=== PATIENT | female | born 1945 | race Hispanic/Latino ===

== ENCOUNTER 2018-05-27 18:13 | Emergency (ER) | payer MEDICARE ==
[2018-05-27] MEDS ORDERED: NORCO 5/325 PO ONE (20:49)
--- NOTE | 2018-05-27 21:04 | Emergency Department Report ---
HPI - General Chief Complaint: Fall Time Seen by Provider: 05/27/18 20:35 - HPI HPI: Room 2 The patient is a 72-year-old female presenting with the chief complaint of facial pain after fall. The patient states this morning while in the bathroom she slid out of her son's arms and when her buttocks. The patient states later this afternoon while adjusting herself in her power chair she slipped out and fell on her face. Patient states she does not believe she lost consciousness. The patient states she had a headache that has since resolved. The patient has had progressive weakness for several months requiring her to use a wheelchair and is being followed by her primary physician. The patient states she has an appointment to see a neurologist in 2 days. Location: Face, neck Duration: [See above] Quality: Pain Severity: 07/17 Modifying factors: [see above] Context: [see above] Mode of transportation: [not driving] ED Past Medical Hx - Past Medical History Hx Congestive Heart Failure: Yes Hx Diabetes: Yes Hx COPD: Yes - Surgical History Past Surgical History?: No Hx Cholecystectomy: Yes Additional Surgical History: Oral surgery, - Social History Smoking Status: Former Smoker (none 14 years) Substance Use Type: None - Medications Home Medications: Home Medications Medication Instructions Recorded Confirmed Last Taken Type HYDROcodone/APAP 5-325 [[place] 1 - 2 each PO Q6HR PRN #10 tablet 05/27/18 Unknown Rx 5/325] ED Review of Systems ROS: Stated complaint: FELL/PAIN Other details as noted in HPI Musculoskeletal: myalgia Neurological: headache, weakness Physical Exam - Physical Exam Vital Signs: Vital Signs 05/27/18 18:14 Temperature 97.6 F Pulse Rate 86 Respiratory 18 Rate Blood Pressure 212/90 O2 Sat by Pulse 95 Oximetry Physical Exam: GENERAL: The patient is well-developed well-nourished female sitting in wheelchair not appearing to be in acute distress. [] HEENT: Normocephalic. Extraocular motions are intact. Patient has moist mucous membranes. NECK: There is no axial tenderness to palpation but there is pain with range of motion CHEST/LUNGS: Clear to auscultation. There is no respiratory distress noted. HEART/CARDIOVASCULAR: Regular. There is no tachycardia. There is no gallop rub or murmur. ABDOMEN: Abdomen is soft, nontender. Patient has normal bowel sounds. There is no abdominal distention. SKIN: There is no diaphoresis. NEURO: The patient is awake, alert, and oriented. The patient is cooperative. The patient has no focal neurologic deficits. The patient has normal speech. Cranial nerves II through XII grossly intact, no drift MUSCULOSKELETAL: There is no evidence of acute injury. ED Course Vital Signs 05/27/18 18:14 Temperature 97.6 F Pulse Rate 86 Respiratory 18 Rate Blood Pressure 212/90 O2 Sat by Pulse 95 Oximetry ED Medical Decision Making - Radiology Data Radiology results: report reviewed (CT head), image reviewed (CT head, CT cervical spine, CT facial bones) [address] [address] Cat Scan Report Signed Patient: EZEKIEL LANDIS MR#: [id number] : 1945 Acct:[id number] Age/Sex: 72 / F ADM Date: 05/27/18 Loc: ED Attending Dr: Ordering Physician: DAVID SANTIAGO MD Date of Service: 05/27/18 Procedure(s): CT head/brain wo con Accession Number(s): [id number] cc: DAVID SANTIAGO MD FINAL REPORT EXAM: CT HEAD/BRAIN WO CON HISTORY: fall on face TECHNIQUE: Standard unenhanced CT of the head at 5.0 millimeter axial increments. PRIORS: None. FINDINGS: The ventricular system is normal in size and configuration. There is no evidence for parenchymal volume loss. There is no evidence for mass lesion, mass effect, midline shift, acute intracranial hemorrhage, or acute ischemia/ infarction. No evidence for acute skull fracture is seen. No abnormality in the overlying scalp soft tissues is seen. Visualized paranasal sinuses are clear. IMPRESSION: Negative CT of the head. No acute intracranial process noted. Transcribed By: [facility] Dictated By: TIAGO JENNINGS MD Electronically Authenticated By: TIAGO JENNINGS MD Signed Date/Time: 05/27/182155 DD/ 55 TD/TT: 05/27/182155 [address] [address] Cat Scan Report Signed Patient: EZEKIEL LANDIS MR#: [id number] : 1945 Acct:[id number] Age/Sex: 72 / F ADM Date: 05/27/18 Loc: ED Attending Dr: Ordering Physician: DAVID SANTIAGO MD Date of Service: 05/27/18 Procedure(s): CT cervical spine wo con Accession Number(s): [id number] cc: DVAID SANTIAGO MD FINAL REPORT EXAM: CT CERVICAL SPINE WO CON HISTORY: fall on face TECHNIQUE: Standard CT cervical spine obtained at 2.5 mm axial increments. Coronal and sagittal reconstruction was also performed. PRIORS: None. FINDINGS: The vertebral bodies are intact. There is no evidence for acute fracture. There is no evidence for paravertebral soft tissue swelling. Alignment is maintained. There is severe degenerative disc narrowing throughout all levels of the cervical spine. Posterior spurring at these levels is also seen causing bilateral neural foraminal narrowing throughout. Bilateral facet joint degenerative changes are present from C3 through C7. IMPRESSION: No acute abnormality of the cervical spine. Extensive degenerative changes throughout the cervical spine. Transcribed By: [facility] Dictated By: TIAGO JENNINGS MD Electronically Authenticated By: TIAGO JENNINGS MD Signed Date/Time: 05/27/182209 DD/ 09 TD/TT: 05/27/182209 [facility] [address] [place] [address] Cat Scan Report Signed Patient: EZEKIEL LANDIS MR#: [id number] : 1945 Acct:[id number] Age/Sex: 72 / F ADM Date: 05/27/18 Loc: ED Attending Dr: Ordering Physician: DAVID SANTIAGO MD Date of Service: 05/27/18 Procedure(s): CT facial bones wo con Accession Number(s): [id number] cc: DAVID SANTIAGO MD FINAL REPORT EXAM: CT FACIAL BONES WO CON HISTORY: fall on face TECHNIQUE: Standard unenhanced CT facial bones at 2.5 mm axial increments with coronal and sagittal reconstruction PRIORS: None. FINDINGS: No evidence for acute bony fracture is noted. There is a calcified 8.5 mm osteoid osteoma within the posterior left ethmoid air cells. There is a smaller 3.9 mm osteoid osteoma in the left ethmoid air cells superiorly. Otherwise, the frontal, ethmoid, maxillary, and sphenoid sinuses are clear with no evidence for air-fluid levels or mucosal thickening. Nasal septum is midline. The orbits are intact. The orbital globes are normal. The visualized mastoid air cells are also clear. No overlying soft tissue abnormality is seen. IMPRESSION: No acute abnormality of the facial bones. No evidence for acute fracture. 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 Transcribed By: [facility] Dictated By: TIAGO JENNINGS MD Electronically Authenticated By: TIAGO JENNINGS MD Signed Date/Time: 05/27/182213 DD/ 13 TD/TT: 05/27/182213 - Medical Decision Making Patient states she was told to discontinue her antihypertensive medication for 5 months ago by her primary physician when her systolic blood pressure was in the 130s. Patient and family advised to resume one of her blood pressure medications and follow-up with primary physician for further evaluation - Differential Diagnosis close head injury, ICH, cervical fracture, facial fracture, hypertension Critical care attestation.: If time is entered above; I have spent that time in minutes in the direct care of this critically ill patient, excluding procedure time. ED Disposition Clinical Impression: Closed head injury, Cervical strain, Hypertension Disposition: - TO HOME OR SELFCARE Is pt being admited?: No Does the pt Need Aspirin: No Condition: Stable Instructions: Hypertension (ED) Additional Instructions: Return to the emergency department immediately should you develop worsening symptoms, fever, inability to tolerate food or liquid or any other concerns. Prescriptions: HYDROcodone/APAP 5-325 [[place] 5/325] 1 - 2 each PO Q6HR PRN #10 tablet PRN Reason: Pain Referrals: DAMION GOTTLIEB MD [Primary Care Provider] - 3-5 Days Time of Disposition: 22:40
[2018-05-27] MEDS ORDERED: CATAPRES PO ONE (21:14)
--- NOTE | 2018-05-27 22:00 | Cat Scan Report ---
FINAL REPORT EXAM: CT HEAD/BRAIN WO CON HISTORY: fall on face TECHNIQUE: Standard unenhanced CT of the head at 5.0 millimeter axial increments. PRIORS: None. FINDINGS: The ventricular system is normal in size and configuration. There is no evidence for parenchymal volume loss. There is no evidence for mass lesion, mass effect, midline shift, acute intracranial hemorrhage, or acute ischemia/ infarction. No evidence for acute skull fracture is seen. No abnormality in the overlying scalp soft tissues is seen. Visualized paranasal sinuses are clear. IMPRESSION: Negative CT of the head. No acute intracranial process noted.
--- NOTE | 2018-05-27 22:14 | Cat Scan Report ---
FINAL REPORT EXAM: CT CERVICAL SPINE WO CON HISTORY: fall on face TECHNIQUE: Standard CT cervical spine obtained at 2.5 mm axial increments. Coronal and sagittal reconstruction was also performed. PRIORS: None. FINDINGS: The vertebral bodies are intact. There is no evidence for acute fracture. There is no evidence for paravertebral soft tissue swelling. Alignment is maintained. There is severe degenerative disc narrowing throughout all levels of the cervical spine. Posterior spurring at these levels is also seen causing bilateral neural foraminal narrowing throughout. Bilateral facet joint degenerative changes are present from C3 through C7. IMPRESSION: No acute abnormality of the cervical spine. Extensive degenerative changes throughout the cervical spine.
--- NOTE | 2018-05-27 22:19 | Cat Scan Report ---
FINAL REPORT EXAM: CT FACIAL BONES WO CON HISTORY: fall on face TECHNIQUE: Standard unenhanced CT facial bones at 2.5 mm axial increments with coronal and sagittal reconstruction PRIORS: None. FINDINGS: No evidence for acute bony fracture is noted. There is a calcified 8.5 mm osteoid osteoma within the posterior left ethmoid air cells. There is a smaller 3.9 mm osteoid osteoma in the left ethmoid air cells superiorly. Otherwise, the frontal, ethmoid, maxillary, and sphenoid sinuses are clear with no evidence for air-fluid levels or mucosal thickening. Nasal septum is midline. The orbits are intact. The orbital globes are normal. The visualized mastoid air cells are also clear. No overlying soft tissue abnormality is seen. IMPRESSION: No acute abnormality of the facial bones. No evidence for acute fracture. 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
[2018-05-28 00:12] VITALS: BP 107/55
== END 2018-05-28 00:27 | disposition home or self-care (01) ==
LOC: ED 18:13
DX: S16.1XXA Strain of muscle, fascia and tendon at neck level, initial encounter (principal); S09.90XA Unspecified injury of head, initial encounter; I10 Essential (primary) hypertension; I50.9 Heart failure, unspecified; E11.9 Type 2 diabetes mellitus without complications; J44.9 Chronic obstructive pulmonary disease, unspecified; Z90.49 Acquired absence of other specified parts of digestive tract; W01.0XXA Fall on same level from slipping, tripping and stumbling without subsequent striking against object, initial encounter; Y93.89 Activity, other specified; Y92.89 Other specified places as the place of occurrence of the external cause; Y99.2 Volunteer activity
CPT/HCPCS: 70450; 70486; 72125